=== PATIENT | female | born 1950 ===

== ENCOUNTER 2017-06-15 18:41 | Emergency (ER) | payer MEDICARE, OTHER ==
[2017-06-15 18:45] VITALS: RESP 16
[2017-06-15] MEDS ORDERED: Naproxen 500 MG TAB PO STA (19:06)
--- NOTE | 2017-06-15 19:09 | ED PDOC ---
HPI: General Adult Time Seen by Provider: 06/15/17 18:56 Chief Complaint (Nursing): Trauma History Per: Patient, Family (Tripped and fell om sidewalk, fell with injury to right side of face, right shoulder and both knees. No LOC or dizziness. no weakness.) Onset/Duration Of Symptoms: Hrs (1) Current Symptoms Are (Timing): Still Present Severity: Moderate Pain Scale Rating Of: 4 Past Medical History Vital Signs: Last Vital Signs Temp 98.1 F 06/15/17 18:43 Pulse 90 06/15/17 18:43 Resp 16 06/15/17 18:43 BP 148/64 06/15/17 18:43 Pulse Ox 100 06/15/17 19:10 - Medical History PMH: Denies: Chronic Kidney Disease - Family History Family History: States: Unknown Family Hx - Home Medications Home Medications: Ambulatory Orders Medication Instructions Recorded Amoxicillin/Potassium Clav 1 tab PO TID #30 tab 06/15/17 [Augmentin 500 mg-125 mg] traMADol [Ultram] 50 mg PO Q8 #10 tab 06/15/17 - Allergies Allergies/Adverse Reactions: Allergies Allergy/AdvReac Type Severity Reaction Status Date / Time No Known Allergies Allergy Verified 06/15/17 18:43 Review of Systems Musculoskeletal: Positive for: Shoulder Pain, Other (knee pain) Neurological: Negative for: Weakness, Numbness, Headache, Dizziness Physical Exam - Physical Exam Appears: Positive for: Non-toxic, No Acute Distress Head Exam: Negative for: ATRAUMATIC (abrasion right periorbital area, No palp fx ) Skin: Positive for: Normal Color, Warm, DRY Eye Exam: Positive for: EOMI, PERRL Neck: Positive for: Normal, Painless ROM, Supple Extremity: Positive for: Other (Right shoulder tender, no deformity , abrasion laterally. Able to rotate with pain. Knees with abrasion bilat FROM no deformity ) - ECG O2 Sat by Pulse Oximetry: 100 Disposition - Clinical Impression Clinical Impression: Orbital fracture - Patient ED Disposition Is Patient to be Admitted: No Counseled Patient/Family Regarding: Studies Performed, Diagnosis, Need For Followup, Rx Given - Disposition Referrals: Sara Reyes DMD [Staff Provider] - Disposition: Routine/Home Disposition Time: 21:04 Condition: FAIR Prescriptions: Amoxicillin/Potassium Clav [Augmentin 500 mg-125 mg] 1 tab PO TID #30 tab traMADol [Ultram] 50 mg PO Q8 #10 tab Instructions: Facial Fracture (ED) Forms: [facility] (Hebrew) Print Language: TURKMEN
[2017-06-15] MEDS ORDERED: Naproxen 500 MG TAB PO ONE (19:45)
[2017-06-15 21:20] VITALS: BP 141/71; PULSE 85; TEMP 98.4; O2SAT 98
--- NOTE | 2017-06-16 09:40 | CT ---
PROCEDURE: CT HEAD WITHOUT CONTRAST. HISTORY: r/o bleed COMPARISON: None available. TECHNIQUE: Axial computed tomography images were obtained through the head/brain without intravenous contrast. Radiation dose: Total exam DLP = 785.48 mGy-cm. This CT exam was performed using one or more of the following dose reduction techniques: Automated exposure control, adjustment of the mA and/or kV according to patient size, and/or use of iterative reconstruction technique. FINDINGS: HEMORRHAGE: No acute parenchymal, subarachnoid or extra-axial hemorrhage. . BRAIN: No mass effect or edema. Minimal chronic microvascular ischemic changes. Mild generalized volume loss VENTRICLES: Unremarkable. No hydrocephalus. CALVARIUM: No acute calvarial fractures PARANASAL SINUSES: Mild mucosal thickening seen within what is felt to be the posterior superior margin right maxillary antrum MASTOID AIR CELLS: Unremarkable as visualized. No inflammatory changes. OTHER FINDINGS: None. IMPRESSION: No acute intracranial hemorrhage. Suspect minimal chronic white matter ischemic changes. Mild generalized volume loss.
--- NOTE | 2017-06-16 09:53 | CT ---
PROCEDURE: CT scan of the maxillofacial skeleton HISTORY: Trauma. COMPARISON: Comparison made with prior CT scan maxillofacial skeleton 06/15/2017. TECHNIQUE: Contiguous helical/transaxial CT images of the maxillofacial bones were obtained. Coronal and sagittal reformats were generated. Radiation dose: Total exam DLP = 618.41. MGy-cm. This CT exam was performed using one or more of the following dose reduction techniques: Automated exposure control, adjustment of the mA and/or kV according to patient size, and/or use of iterative reconstruction technique. . The current study reveals multiple right-sided facial bone fractures. There are comminuted fractures of the anterior and posterolateral wall of the right maxillary antrum. . Fractures involve the right orbital rim and orbital floor. There is also fracture of the posterolateral wall right orbit. . Hemorrhagic fluid levels present within the right maxillary antrum. Subcutaneous air bubbles are seen within the premaxillary soft tissues as well as within the soft tissues posterior and adjacent to the comminuted fracture posterolateral wall. There is definitive radiographic evidence of entrapment of the right inferior rectus muscle however spicule of bone appears to abut the inferior margin of the right globe. Ophthalmologic and fundoscopic examination recommended. The globes intact and lenses appropriately located. No definitive retrobulbar hemorrhages or collections seen. There is minor mucosal thickening within the ethmoid air complex extending superiorly into the frontal sinus. . The optic nerves and extraocular musculature appear grossly unremarkable. Minor mucosal thickening seen within the ethmoid air complex extending superiorly into the inferior margins of the frontal sinus. IMPRESSION: Multiple comminuted right-sided facial bone fractures (including fractures of the maxillary antra and orbital rim as well as floor right orbit) with overlying soft tissue swelling as detailed above. . Of significant note is a spicule of bone,, the edge of which appears to abut the inferior aspect right lobe. Follow-up ophthalmologic and fundoscopic examination recommended. Note that this report was placed in [facility] review folder for followup.
--- NOTE | 2017-06-16 13:34 | RAD ---
PROCEDURE: Radiographs of the Right Shoulder HISTORY: trauma COMPARISON: No prior. FINDINGS: BONES: Normal. No fracture no evidence of acute displaced fracture nor dislocation. The osseous structures appear intact. . JOINTS: Mild degenerative changes right acromioclavicular joint. SOFT TISSUES: Normal. OTHER FINDINGS: None. IMPRESSION: No evidence of acute displaced fracture nor dislocation. Mild degenerative changes right acromioclavicular joint. .
--- NOTE | 2017-06-16 19:41 | RAD ---
PROCEDURE: Bilateral Knee Radiographs. HISTORY: Trauma presenting with left prepatellar pain and right prepatellar pain COMPARISON: None. FINDINGS: BONES: Right Knee: No acute fractures Left Knee: No acute fractures JOINTS: Right Knee: Multi compartment degenerative change primarily affecting medial and lateral compartments Left knee: Symmetrical degenerative changes SOFT TISSUES: Right Knee: Normal. Left Knee: Normal. JOINT EFFUSION: Right Knee: None. Left Knee: None. OTHER FINDINGS: None. IMPRESSION: No acute findings related to/accounting for the clinical presentation.
== END 2017-06-15 21:23 | disposition home or self-care (01) ==
LOC: H.ER 18:41
DX: S02.40CA Maxillary fracture, right side, initial encounter for closed fracture (principal); S02.31XA Fracture of orbital floor, right side, initial encounter for closed fracture; S80.212A Abrasion, left knee, initial encounter; S80.211A Abrasion, right knee, initial encounter; W01.0XXA Fall on same level from slipping, tripping and stumbling without subsequent striking against object, initial encounter; Y92.480 Sidewalk as the place of occurrence of the external cause; Y99.9 Unspecified external cause status